=== PATIENT | male | born 1950 | race Caucasian/White ===

== ENCOUNTER 2023-02-07 15:06 | Emergency (ER) | payer OTHER ==
[~2023-02-07] VITALS: Ht 160 cm; Wt 89.4 kg
[2023-02-07 15:06] VITALS: BP_SYST 141; PULSE 68; RESP 18; TEMP 97.1; O2SAT 95
--- NOTE | 2023-02-07 15:10 | NUR ---
BROUGHT BACK TO BED #6 AND TRIAGED REPORT GIVEN TO JOSE
--- NOTE | 2023-02-07 15:30 | NUR ---
ER at bedside examining patient.
--- NOTE | 2023-02-07 15:40 | NUR ---
Pt gowned up and placed on bed gonzalez.
[2023-02-07] MEDS ORDERED: MECLIZINE HCL 25 MG TABLET (ANITVERT) PO ONE (15:45)
[2023-02-07] MEDS ORDERED: METOCLOPRAMIDE HCL 10 MG/2 ML VIAL IVP ONE (15:45)
--- NOTE | 2023-02-07 15:45 | NUR ---
# 20 gauge angiocath placed to left antecubital fossa. Use of asceptic technique. Opsite placed over site. Blood return noted. Blood for lab drawn from site. Flushed with 10 cc of normal saline. No evidence of infiltration noted. Patient tolerated well.
--- NOTE | 2023-02-07 15:46 | NUR ---
Patient seen by MD at this time. ADAM Cam with RN student drawing labs, starting IV and placoing patient on monitor.
[2023-02-07 16:08] LABS: BASOPHILS # (AUTO) 0.1 K/uL (0.0-0.2); BASOPHILS % (AUTO) 1.4 % (0.0-2.0); EOSINOPHILS # (AUTO) 0.2 K/uL (0.0-0.4); EOSINOPHILS % (AUTO) 1.9 % (0.0-4.0); HEMATOCRIT 44.3 % (36-54); HEMOGLOBIN 14.7 g/dL (14.0-18.0); LYMPHOCYTES # (AUTO) 2.4 K/uL (1.0-5.5); LYMPHOCYTES % (AUTO) 26.5 % (20.5-51.5); MEAN CORPUSCULAR HEMOGLOBIN 32 pg (27-31); MEAN CORPUSCULAR HGB CONC 33 % (32-36); MEAN CORPUSCULAR VOLUME 95 fL (79.0-98.0); MONOCYTES # (AUTO) 0.7 K/uL (0.0-1.0); MONOCYTES % (AUTO) 7.5 % (1.7-9.3); NEUTROPHILS # (AUTO) 5.8 K/uL (1.8-7.7); NEUTROPHILS % (AUTO) 62.7 % (40.0-70.0); PLATELET COUNT (AUTO) 213 K/uL (130-430); RED BLOOD CELL COUNT(AUTO) 4.65 MIL/uL (4.2-6.2); RED CELL DISTRIBUTION WIDTH 13.5 % (9.0-15.0); WHITE BLOOD COUNT (AUTO) 9.2 K/uL (4.8-10.8)
[2023-02-07 16:21] LABS: INR 1.1 (0.80-1.20); PROTHROMBIN TIME 11.2 SECS (9.5-12.5)
[2023-02-07 16:28] LABS: ANION GAP 8 (5-15); CALCIUM 8.7 mg/dL (8.4-11.0); CHLORIDE 103 mmol/L (98-107); CREATININE 0.63 mg/dL (0.55-1.30); GLUCOSE 114 mg/dL (74-106); UREA NITROGEN, BLOOD 13 mg/dL (8-21)
--- NOTE | 2023-02-07 16:31 | NUR ---
Patient states she is feeling less nauseous. Patient escorted to radiology at this time.
[2023-02-07 16:32] LABS: ALANINE AMINOTRANSFERASE 126 U/L (12-78); ALBUMIN 3.6 g/dL (3.4-4.8); ASPARTATE AMINOTRANSFERASE 86 U/L (10-37); TOTAL BILIRUBIN 0.4 mg/dL (0.0-1.0)
[2023-02-07] MEDS ORDERED: MECL-261 PO (17:21)
--- NOTE | 2023-02-07 17:27 | NUR ---
Patient given written and verbal discharge instructions and verbalizes understanding. ER MD discussed with patient the results and treatment provided. Patient in stable condition. ID arm band removed. IV catheter removed intact and dressing applied, no active bleeding. Rx of meclizine given. Patient educated on pain management and to follow up with PMD. Pain Scale 0/10. Opportunity for questions provided and answered. Medication side effect fact sheet provided.
[2023-02-07 17:58] VITALS: BP_SYST 116; PULSE 69; RESP 16; TEMP 97.9; O2SAT 98
== END 2023-02-07 17:27 | disposition home or self-care (01) ==
LOC: SED 15:06
DX: R42 Dizziness and giddiness (principal); R11.2 Nausea with vomiting, unspecified; Z79.899 Other long term (current) drug therapy
CPT/HCPCS: 99285; 70450; 71045; 80053; 82550; 85025; 85610; 85730; 84484; 36415; 76376; 96372; J8597; J2765; 93005